=== PATIENT | male | born 1960 | race Caucasian/White ===

== ENCOUNTER 2025-01-18 09:42 | Observation (INO) ==
[2025-01-18 09:58] VITALS: BMI 26.3
--- NOTE | 2025-01-18 10:10 | DR.ABDMALE ---
HPI Time seen Time Seen by Provider: 01/18/25 10:09 PCP Primary Care Physician: CORIN Vyas Complaint Chief Complaint:: Pt c/o three days of constant sharp stabbing pain in the RLQ that is worse with movement and better with rest. Pt has had some mild nausea but denies any vomiting. Pt did have low grade fever last night. COVID-19 Coronavirus risk:travel/contact w/high risk person: No Has patient experienced Coronavirus symptoms: No Reviewed Nurses Notes Review: Yes Mode of arrival Mode of Arrival: Ambulatory Timing Onset of Chief Complaint: 01/16/25 PMH PMH Past Medical History: Yes Past Medical History: Dyslipidemia, Hypertension and Sleep Apnea Past Medical History Comment: Polycystic Kidney Disease Past Surgical History: Yes Surgical History: Ortho Surgery, Tonsillectomy and Other Past Surgical History Comment: urolift, right tka Family History History of Family Medical Conditions: Yes Family Medical History: Cancer and Hypertension Family Medical History Comment: polycystic kidney disease Social History Does patient currently use any type of tobacco product: No Have you used tobacco products in the last 12 months: No Type of Tobacco Use: None Does any household member use tobacco: No Alcohol Use: None Do you use any recreational Drugs:: No Lives With: Spouse Lives Where: Home Travel Risk Coronavirus risk:travel/contact w/high risk person: No Has patient experienced Coronavirus symptoms: No Infectious screening In the last 2 months have you had wt loss of >10#?: NO Have you had fever, night sweats or hemotysis?: No Have you traveled outside the country in the last 6 months?: No Isolation: Standard ROS Review of Systems Constitutional: No Symptoms Reported PE Vital Signs Vital Signs: Temp Pulse Resp BP Pulse Ox O2 Del Method 01/18/25 09:54 97.8 F 68 20 124/58 98 Room Air ROR Labs Reviewed 01/18/25 10:30 01/18/25 10:30 Laboratory: WBC 12.2 X10^3/uL (3.6-10.0) H 01/18/25 10:30 RBC 4.10 X10^6/uL (4.7-6.0) L 01/18/25 10:30 Hgb 12.8 g/dL (13.5-18.0) L 01/18/25 10:30 Hct 37.8 % (42.0-54.0) L 01/18/25 10:30 MCV 92.1 fL (80.0-100.0) 01/18/25 10:30 MCH 31.3 pg (27.0-34.0) 01/18/25 10:30 MCHC 34.0 g/dL (33.0-35.0) 01/18/25 10:30 RDW 13.3 % (11.6-16.5) 01/18/25 10:30 Plt Count 117 X10^3/uL (150.0-450.0) L 01/18/25 10:30 MPV 9.4 fL (7.4-11.0) 01/18/25 10:30 Neut % (Auto) 86.8 % (42.0-75.0) H 01/18/25 10:30 Lymph % (Auto) 5.5 % (21.0-51.0) L 01/18/25 10:30 Ida % (Auto) 7.4 % (0.0-13.0) 01/18/25 10:30 Eos % (Auto) 0.0 % (0.9-2.9) L 01/18/25 10:30 Baso % (Auto) 0.3 % (0.2-1.0) 01/18/25 10:30 Neut # (Auto) 10.6 x10^3/uL (2.2-4.8) H 01/18/25 10:30 Lymph # (Auto) 0.7 X10^3/uL (1.3-2.9) L 01/18/25 10:30 Ida # (Auto) 0.9 x10^3/uL (0.3-0.8) H 01/18/25 10:30 Eos # (Auto) 0.0 x10^3/uL (0.0-0.2) 01/18/25 10:30 Baso # (Auto) 0.0 X10^3/uL (0.0-0.1) 01/18/25 10:30 Absolute Nucleated RBC 0.1 /100WBC 01/18/25 10:30 Specimen Type Clean catch urine 01/18/25 10:32 Urine Color Straw (YELLOW) 01/18/25 10:32 Urine Appearance Clear (CLEAR) 01/18/25 10:32 Urine pH 6.0 (5.0 - 8.0) 01/18/25 10:32 Ur Specific [place] 1.015 (1.000-1.030) 01/18/25 10:32 Urine Protein 1+ (NEGATIVE) 01/18/25 10:32 Urine Glucose (UA) Negative (NEGATIVE) 01/18/25 10:32 Urine Ketones Negative (NEGATIVE) 01/18/25 10:32 Urine Blood 1+ (NEGATIVE) 01/18/25 10:32 Urine Nitrite Negative (NEGATIVE) 01/18/25 10:32 Urine Bilirubin Negative (NEGATIVE) 01/18/25 10:32 Urine Urobilinogen Normal (NORMAL) 01/18/25 10:32 Ur Leukocyte Esterase Negative (NEGATIVE) 01/18/25 10:32 Urine RBC None seen /HPF (0-3) 01/18/25 10:32 Urine WBC 0-2 /HPF (0-5) 01/18/25 10:32 Ur Squamous Epith Cells Rare /HPF (NEGATIVE) 01/18/25 10:32 Urine Bacteria Negative /HPF (NEGATIVE) 01/18/25 10:32 Ur Culture Indicated? No/not indicated 01/18/25 10:32 Opioid Opioid Risk Tool Age (Laz box if 16-45): No History of Preadolescent Sexual Abuse: No Total: 0 Total Score Risk Category: Low Risk Copyright: Ponce HEDRICK predicting aberrant behaviors Discharge Plan Discharge Plan Patient Disposition: 01 HOME, SELF-CARE Condition: Stable Prescriptions: No Action tamsulosin 0.4 mg capsule 0.4 mg PO QDAY aspirin 81 mg tablet,delayed release (DR/EC) 81 mg PO DAILY olmesartan 5 mg tablet 5 mg PO QDAY simvastatin 10 mg tablet 10 mg PO DIRECTED Patient Comments: [NO ORIGINAL SIG] Rx Instructions: take 1 tablet po three times weekly Health Concerns: Post Hospitalization: new medications and changes needed to prevent readmission or further decline. Pt educated and given instructions on all concerns. Plan of Treatment: Continue with present treatment and follow up plan. Pt is to keep follow up appointment as instructed and take medications as ordered. Follow ups/Referrals Follow ups/Referrals: DEVORA STRONG [Primary Care Provider] - 3 days Instructions Stand Alone Forms: Find Help Web Site, Post Hospital Follow Up Care
[2025-01-18 10:44] LABS: BASOPHILS % (AUTO) 0.3 % (0.2-1.0); HEMATOCRIT 37.8 % (42.0-54.0); HEMOGLOBIN 12.8 g/dL (13.5-18.0); LYMPHOCYTES # (AUTO) 0.7 X10^3/uL (1.3-2.9); LYMPHOCYTES % (AUTO) 5.5 % (21.0-51.0); MEAN CORPUSCULAR HEMOGLOBIN 31.3 pg (27.0-34.0); MEAN CORPUSCULAR VOLUME 92.1 fL (80.0-100.0); MEAN PLATELET VOLUME 9.4 fL (7.4-11.0); MONOCYTES # (AUTO) 0.9 x10^3/uL (0.3-0.8); MONOCYTES % (AUTO) 7.4 % (0.0-13.0); NEUTROPHILS # (AUTO) 10.6 x10^3/uL (2.2-4.8); NEUTROPHILS % (AUTO) 86.8 % (42.0-75.0); PLATELET COUNT 117 X10^3/uL (150.0-450.0); RED CELL DISTRIBUTION WIDTH 13.3 % (11.6-16.5); WHITE BLOOD COUNT 12.2 X10^3/uL (3.6-10.0)
[2025-01-18 10:48] LABS: BILIRUBIN,URINE NEGATIVE (NEGATIVE); BLOOD/HEMOGLOBIN,URINE 1+ (NEGATIVE); GLUCOSE, URINE NEGATIVE (NEGATIVE); KETONES,URINE NEGATIVE (NEGATIVE); LEUKOCYTE ESTERASE ,URINE NEGATIVE (NEGATIVE); NITRITES,URINE NEGATIVE (NEGATIVE); PROTEIN,URINE 1+ (NEGATIVE); UROBILINOGEN,URINE NORMAL (NORMAL)
[2025-01-18 10:58] LABS: APPEARANCE,URINE CLEAR (CLEAR); COLOR,URINE STRAW (YELLOW)
[2025-01-18 10:59] LABS: BACTERIA,URINE NEGATIVE /HPF (NEGATIVE); RBC,URINE NONE SEEN /HPF (0-3); SQUAMOUS EPITHELIAL CELL,UR RARE /HPF (NEGATIVE)
--- NOTE | 2025-01-18 11:29 | CT ---
EXAM: CT ABDOMEN AND PELVIS WITHOUT CONTRAST HISTORY: Pt c/o three days of constant sharp stabbing pain in the RLQ that is worse with movement and better w ith rest. Pt has had some mild nausea but denies any vomiting. Pt did have low grade fever last night .; COMPARISON: May 30, 2024. TECHNIQUE: Axial CT images were obtained through the abdomen and pelvis without contrast. Coronal reformatted im ages were included. All CT scans at this facility use dose modulation, iterative reconstruction, and/or weight based dosi ng when appropriate to reduce radiation dose to as low as reasonably achievable. FINDINGS: Please note that without the use of intravenous contrast, evaluation of organ parenchyma is limited. LOWER THORAX: Normal ABDOMEN: LIVER: Normal GALLBLADDER: Normal SPLEEN: Normal PANCREAS: Normal KIDNEYS: Polycystic kidney disease noted, with innumerable cysts replacing the renal parenchyma. ADRENAL GLANDS: Normal GI TRACT: Large volume of colonic stool suggests constipation. Acute appendicitis is noted in the ri ght lower quadrant. Dilated appendix measures up to 14 mm in caliber with adjacent fat stranding. LYMPH NODES: No enlarged nodes VESSELS: Mild atherosclerosis. PERITONEUM / RETROPERITONEUM: No free gas PELVIS: BLADDER: Normal GENITALS: Postop changes noted within the prostate. BONES: Degenerative changes noted within the lumbar spine and pelvis. IMPRESSION: Acute appendicitis. Polycystic kidney disease. THIS IS AN ELECTRONICALLY VERIFIED FINAL REPORT 01/18/2025 11:22 AM - Electronically signed by Jeffery Mitchell MD
--- NOTE | 2025-01-18 12:02 | EKG ---
Test Reason : preop clearance Blood Pressure : */* mmHG Vent. Rate : 65 BPM Atrial Rate : 65 BPM P-R Int : 98 ms QRS Dur : 106 ms QT Int : 378 ms P-R-T Axes : 33 44 60 degrees QTc Int : 393 ms Poor data quality, interpretation may be adversely affected Sinus rhythm with short CA Otherwise normal ECG No previous ECGs available Confirmed by Julio Ceballos MD ([id number]) on 01/18/2025 12:19:31 PM Referred By: Confirmed By: Julio Ceballos MD
[2025-01-18] MEDS: BACTROBAN TOPICAL OINT ONE (12:22)
[2025-01-18] MEDS: LR 1,000 ML IV 1,000 ML IV ONE (12:31)
[2025-01-18] MEDS: NOZIN NASAL SANITIZER TP ONE (12:31)
[2025-01-18 12:40] LABS: ALBUMIN 3.3 g/dL (3.4-5.0); CALCIUM 8.5 mg/dL (8.5-10.1); CARBON DIOXIDE 27.1 mmol/L (21-32); COR CA(FOR HYPOALB) 9.1 mg/dL (8.5-10.1); CREATININE 2.09 mg/dL (0.70-1.30); POTASSIUM 3.8 mmol/L (3.5-5.1); TOTAL PROTEIN 6.6 g/dL (6.4-8.2)
[2025-01-18] MEDS ORDERED: BARHEMSYS INJ IVP PRN (12:43)
[2025-01-18] MEDS ORDERED: ZOFRAN INJ 4 MG VIAL IVP PRN (12:43)
[2025-01-18] MEDS ORDERED: DILAUDID INJ IVP PRN (12:43)
[2025-01-18] MEDS ORDERED: BENADRYL INJ 50 MG VIAL IVP PRN (12:43)
[2025-01-18] MEDS: NS 100 ML IV 100 ML ONE (12:50)
[2025-01-18] MEDS: ANCEF VIAL 1 GRAM ONE (12:50)
[2025-01-18] MEDS: LR 1,000 ML IV 900 ML IV PRN (12:50)
[2025-01-18] MEDS: VERSED IVP PRN (12:55)
[2025-01-18] MEDS: PEPCID 20 MG VIAL IVP PRN (12:55)
[2025-01-18] MEDS: REGLAN INJ 10 MG VIAL IVP PRN (12:55)
[2025-01-18] MEDS: ZOFRAN INJ 4 MG VIAL IVP PRN ×2 (12:55→15:16)
[2025-01-18] MEDS: PEPCID 20 MG VIAL ONE (13:00)
[2025-01-18] MEDS: ZOFRAN INJ 4 MG VIAL ONE (13:00)
[2025-01-18] MEDS: ANCEF VIAL 1 GRAM IV PRN (13:00)
[2025-01-18] MEDS: BRIDION ONE (13:00)
[2025-01-18] MEDS: FENTANYL VIAL INJ 100 mcg ONE (13:00)
[2025-01-18] MEDS: VERSED ONE (13:00)
[2025-01-18] MEDS: ZEMURON 100 MG VIAL ONE (13:00)
[2025-01-18] MEDS: XYLOCAINE 2 % (PLAIN) ONE (13:00)
[2025-01-18] MEDS: ROBINUL ONE (13:00)
[2025-01-18] MEDS: DIPRIVAN VIAL 20 ML ONE (13:00)
[2025-01-18] MEDS: REGLAN INJ 10 MG VIAL ONE (13:00)
[2025-01-18] MEDS ORDERED: XYLOCAINE 2 % (PLAIN) PRN (13:08)
[2025-01-18] MEDS: DIPRIVAN VIAL 150 ML IVP PRN (13:09)
[2025-01-18] MEDS: KETAMINE HCL IV PRN (13:09)
[2025-01-18] MEDS: ZEMURON 100 MG VIAL IVP PRN (13:09)
[2025-01-18] MEDS: FENTANYL VIAL INJ 100 mcg IVP PRN (13:09)
[2025-01-18] MEDS: EPHEDRINE SULFATE INJ ONE (13:42)
[2025-01-18] MEDS: EPHEDRINE SULFATE INJ IVP PRN (13:42)
[2025-01-18] MEDS: TORADOL 30 MG VIAL IVP PRN (13:43)
[2025-01-18] MEDS: TORADOL 30 MG VIAL ONE (13:43)
[2025-01-18] MEDS: OFIRMEV IV 1000 MG VIAL 1,000 MG/100 ML VIAL IV ONE (13:46)
[2025-01-18] MEDS: OFIRMEV IV 1000 MG VIAL 1,000 MG/100 ML VIAL IV PRN (13:46)
[2025-01-18] MEDS: BRIDION IVP PRN (13:52)
[2025-01-18] MEDS ORDERED: MORPHINE SULFATE INJ 2 MG INJ IVP PRN (14:12)
--- NOTE | 2025-01-18 14:21 | RAD ---
EXAM:CHEST, 1 VIEWHISTORY:PRE OP GB;COMPARISON:08/05/2021TECHNIQUE:AP portableFINDINGS:Unremarkable cardiac silhouette. No focal consolidation, pleural effusion, or visible pneumothorax.IMPRESSION:No acute cardiopulmonary findings.THIS IS AN ELECTRONICALLY VERIFIED FINAL REPORT01/18/2025 2:18 PM - Electronically signed by Jeffery Gunn MD
[2025-01-18] MEDS ORDERED: ZOFRAN INJ 4 MG VIAL ONE (15:04)
[2025-01-18] MEDS: ZOSYN VIAL 3.375 GRAMS 3.375 G in NS 100 ML IV 100 ML IV SCH (16:58)
[2025-01-18] MEDS: D5 1/2 NS 1,000 ML 1,000 ML IV SCH (16:59)
[2025-01-18] MEDS: NS 250 ML IV 25 ML IV PRN (22:51)
[2025-01-19 05:16] LABS: BASOPHILS % (AUTO) 0.4 % (0.2-1.0); EOSINOPHILS # (AUTO) 0.1 x10^3/uL (0.0-0.2); EOSINOPHILS % (AUTO) 1.1 % (0.9-2.9); HEMATOCRIT 35.3 % (42.0-54.0); HEMOGLOBIN 12.3 g/dL (13.5-18.0); LYMPHOCYTES # (AUTO) 0.8 X10^3/uL (1.3-2.9); LYMPHOCYTES % (AUTO) 9.2 % (21.0-51.0); MEAN CORPUSCULAR HEMOGLOBIN 31.7 pg (27.0-34.0); MEAN CORPUSCULAR HGB CONC 34.8 g/dL (33.0-35.0); MEAN CORPUSCULAR VOLUME 91.3 fL (80.0-100.0); MEAN PLATELET VOLUME 9.4 fL (7.4-11.0); MONOCYTES # (AUTO) 0.6 x10^3/uL (0.3-0.8); MONOCYTES % (AUTO) 7.1 % (0.0-13.0); NEUTROPHILS # (AUTO) 7.3 x10^3/uL (2.2-4.8); NEUTROPHILS % (AUTO) 82.2 % (42.0-75.0); PLATELET COUNT 109 X10^3/uL (150.0-450.0); RED BLOOD COUNT 3.87 X10^6/uL (4.7-6.0); RED CELL DISTRIBUTION WIDTH 13.2 % (11.6-16.5); WHITE BLOOD COUNT 8.9 X10^3/uL (3.6-10.0)
[2025-01-19 05:36] LABS: ALANINE AMINOTRANSFERASE 10 Units/L (12-78); ALKALINE PHOSPHATASE 67 Units/L (46-116); ASPARTATE AMINO TRANSFERASE 11 Units/L (15-37); BLOOD UREA NITROGEN 26 mg/dL (7-18); CALCIUM 8.7 mg/dL (8.5-10.1); CARBON DIOXIDE 29.3 mmol/L (21-32); CHLORIDE 105 mmol/L (98-107); COR CA(FOR HYPOALB) 9.5 mg/dL (8.5-10.1); CREATININE 2.05 mg/dL (0.70-1.30); GLUCOSE 98 mg/dL (65-99); POTASSIUM 4.1 mmol/L (3.5-5.1); SODIUM 141 mmol/L (136-145); TOTAL PROTEIN 6.2 g/dL (6.4-8.2); eGFR NON BLACK RACES 35 (>60)
[2025-01-19 09:16] VITALS: BP 133/65; PULSE 62; RESP 18; TEMP 97.4; O2SAT 98
== END 2025-01-19 09:30 | disposition home or self-care (01) ==
LOC: ER 09:42 → MED/SURG 09:42
PROVIDERS: ADMIT Surgery; ATTEND Surgery
PROC: APPYLAP (ICD-10-PCS; 2025-01-18 13:15)
DX: Q61.3 Polycystic kidney, unspecified; K66.0 Peritoneal adhesions (postprocedural) (postinfection); K35.890 Other acute appendicitis without perforation or gangrene; I10 Essential (primary) hypertension; G47.39 Other sleep apnea; Z01.810 Encounter for preprocedural cardiovascular examination; D72.829 Elevated white blood cell count, unspecified